=== PATIENT | female | born 1945 | race Caucasian/White ===

== ENCOUNTER → 2017-03-07 | Outpatient (REF) | payer MEDICARE ==
[2017-03-07 19:27] LABS: FOLATE 9.6 NG/ML
[2017-03-07 19:55] LABS: PERCENT SATURATION 11.8 % (13.2-45.0)
== END ==
LOC: M LAB REF 17:18
PROVIDERS: ATTEND Internal Medicine Nephrology
DX: D64.9 Anemia, unspecified (principal)

== ENCOUNTER → 2017-05-13 | Outpatient (REF) | payer MEDICARE | LOC: M LAB REF 13:20 | DX: N39.0 Urinary tract infection, site not specified (principal) | CPT/HCPCS: 87186 ==

== ENCOUNTER → 2021-01-13 | Outpatient (CLI) | payer MEDICARE ==
--- NOTE | 2021-01-13 13:17 | REP ---
INDICATION: CERVICALGIA. COMPARISON: Comparison cervical spine radiographs May 01, 2019. TECHNIQUE: Eight views including flexion extension lateral radiographs. FINDINGS: Flexion extension lateral views of the cervical spine show straightening and relative limitation of flexion extension range of motion but no instability or subluxation. There is degenerative disc narrowing and anterior osteophyte formation and sclerosis at C4-5 and C5-6 unchanged from the 2019 prior study. Swimmer's lateral view shows no additional abnormality. Open mouth odontoid view shows unremarkable C1-2 alignment. The patient is edentulous. There is diffuse osteopenia. Vascular calcification is noted. Oblique images demonstrate 2 left-sided uncovertebral spurring at C4-5 and C5-6 and mild right-sided uncovertebral spurring at C5-6. IMPRESSION: Degenerative spondylosis changes radiographically unchanged from the May 01, 2019 study. Limited flexion extension range of motion. <Electronically signed by Milan Woodall > 01/13/21 [id number]
== END ==
LOC: M RAD 12:41
PROVIDERS: ATTEND Physician Assistant
DX: M54.2 Cervicalgia (principal)

== ENCOUNTER → 2021-11-26 | Outpatient (CLI) | payer MEDICARE | LOC: M WUC 15:11 | PROVIDERS: ATTEND Family Medicine | DX: I51.7 Cardiomegaly (principal); I70.0 Atherosclerosis of aorta; R91.8 Other nonspecific abnormal finding of lung field; M80.0AXA Age-related osteoporosis with current pathological fracture, other site, initial encounter for fracture; J44.9 Chronic obstructive pulmonary disease, unspecified; M41.9 Scoliosis, unspecified; J43.9 Emphysema, unspecified; Z98.890 Other specified postprocedural states ==

== ENCOUNTER 2021-12-19 16:46 | Emergency (ER) | payer MEDICARE ==
[~2021-12-19] VITALS: Ht 154.9 cm; Wt 54.2 kg
[2021-12-19] MEDS ORDERED: GABAPENTIN 100 MG CAP PO ONE (18:10)
[2021-12-19] MEDS ORDERED: LIDOCAINE 4% CREAM 5GM (LMX4) TOP ONE (18:10)
[2021-12-19] MEDS ORDERED: NEUR100C PO (19:15)
[2021-12-19] MEDS ORDERED: LIDO1CRE2 TOP (19:21)
[2021-12-19 19:36] VITALS: BP 162/92
== END 2021-12-19 19:40 | disposition home or self-care (01) ==
LOC: M ED 16:46
DX: M79.671 Pain in right foot (principal); M85.871 Other specified disorders of bone density and structure, right ankle and foot; F17.200 Nicotine dependence, unspecified, uncomplicated; Z88.0 Allergy status to penicillin; Z88.5 Allergy status to narcotic agent; Z79.899 Other long term (current) drug therapy

== ENCOUNTER → 2021-12-25 | Outpatient (CLI) | payer MEDICARE ==
[~2021-12-25] MED LIST: LIDO1CRE2 TOP; NEUR100C PO
== END ==
LOC: M RAD 09:18
PROVIDERS: ATTEND Physician Assistant
DX: I71.4 Abdominal aortic aneurysm, without rupture (principal)

== ENCOUNTER → 2022-01-01 | Outpatient (CLI) | payer MEDICARE | LOC: M WHC 10:27 | PROVIDERS: ATTEND Physician Assistant | DX: Z13.820 Encounter for screening for osteoporosis (principal); M81.0 Age-related osteoporosis without current pathological fracture; M85.851 Other specified disorders of bone density and structure, right thigh; M85.852 Other specified disorders of bone density and structure, left thigh ==

== ENCOUNTER → 2022-01-14 | Outpatient (CLI) | payer MEDICARE ==
[~2022-01-14] MED LIST changes: +ISOVUE-370 76% 100ML VIAL As Ordered ONE
== END ==
LOC: M RAD 12:56
PROVIDERS: ATTEND Surgery Vascular Surgery
DX: I71.4 Abdominal aortic aneurysm, without rupture (principal)
CPT/HCPCS: 71275; 74174; Q9967

== ENCOUNTER → 2022-02-01 | Outpatient (CLI) | payer MEDICARE ==
[~2022-02-01] MED LIST changes: -ISOVUE-370 76% 100ML VIAL As Ordered ONE
== END ==
LOC: M RAD 10:08
PROVIDERS: ATTEND Surgery Vascular Surgery
DX: I72.4 Aneurysm of artery of lower extremity (principal)